=== PATIENT | male | born 1990 | race Caucasian/White ===

== ENCOUNTER → 2016-07-01 | Outpatient (CLI) | payer BC | END | disposition home or self-care (01) | LOC: RAD 06-30 13:45 | DX: S32.038A Other fracture of third lumbar vertebra, initial encounter for closed fracture (principal); M41.84 Other forms of scoliosis, thoracic region; Z98.890 Other specified postprocedural states; X58.XXXA Exposure to other specified factors, initial encounter; Y93.89 Activity, other specified; Y92.89 Other specified places as the place of occurrence of the external cause; Y99.8 Other external cause status | CPT/HCPCS: 72082 ==